=== PATIENT | female | born 1950 | race Caucasian/White ===

== ENCOUNTER → 2019-10-09 | Outpatient (CLI) | payer MEDICARE ==
--- NOTE | 2019-10-09 17:31 | KCIC ---
CHEST PA LATERAL History: Reason: BLURRING OF RT CARDIOPHERNIC ANGLE, INCREASED DENSITY RETROCARDIAC SPACE / Spl. Instructions: XRAYS AT [facility] TODAY, NO CURRENT SYMPTOMS / History: Comparison: None. Findings: Frontal and lateral views of the chest were obtained. The cardiomediastinal silhouette is normal. Pulmonary vasculature is normal. The lungs are clear. No pleural effusion or pneumothorax is seen. There is no acute bone abnormality. Upper abdominal surgical clips are present. IMPRESSION: No acute cardiopulmonary process. Electronically signed by: Mulugeta Ramos MD (10/09/2019 5:28 PM) [id number]
== END | disposition home or self-care (01) ==
LOC: KCIC 10:43
PROVIDERS: ATTEND Chiropractor
DX: I31.8 Other specified diseases of pericardium (principal); E07.9 Disorder of thyroid, unspecified
CPT/HCPCS: 71046